=== PATIENT | male | born 1995 | race Asian ===

== ENCOUNTER 2025-04-29 15:22 | Outpatient (AMB) | payer OTHER, SELFPAY ==
--- NOTE | 2025-04-29 15:33 | MHC.OFFVIS ---
Intake Visit Reasons: Headaches Allergies No Known Allergies Allergy (Verified 04/23/25 12:54) HPI Comments Details: 29 yo man with epilepsy with generalized seizures (falling, LOC, convulsion, frothing, tongue bite) of unknown etiology since he was 15 years old usually controlled by oxcarbazepine and resulting in breakthrough seizures if not taken. (A product of normal . He was fine until he was 15 years old when he was vacationing in [facility] [place]. Apparently he was found fallen and having a generalized convulsion with tongue bite and frothing. He was taken to a local clinic but no medicine was given. About 3 years later while he was here in , he was getting ready to go to school when he fell backwards and had the same episode again. After this he was taken to [facility] in [place] and had some investigations. He was given diagnoses of epilepsy and was started on oxcarbazepine, which he has been taking since then. He said that spells were mostly controlled except that maybe he had one more episode when he missed some doses. He was not having any problem with medicine. He denied having any warning or aura before the spell. Typically he would found himself on the ground or afterwards. There was no family history of epilepsy.) [facility] Medical History (Updated 04/29/25 @ 15:52 by Ron Jordan MD) Generalized seizure disorder Epilepsy Review of Systems Const Details: Constitutional:?No fever, chills, fatigue, weight loss, or night sweats. HEENT:?No headache, vision changes, hearing loss, nasal congestion, sore throat. Neurological:?No dizziness, syncope, seizures, numbness, tingling, weakness, tremors, memory loss. Psychiatric:?No anxiety, depression, mood swings, sleep disturbance, or hallucinations. Endocrine:?No heat/cold intolerance, polydipsia, polyuria, or hair/skin changes. Hematologic/Lymphatic:?No easy bruising, bleeding, or lymphadenopathy. Integumentary (Skin):?No rash, lesions, itching, or color changes. ? Physical Exam Neuro Other: Mental Status: Alert and oriented to person, place, and time. Normal attention. Normal spontaneous speech, fluency, and comprehension. No obvious issues with mood and memory. Affect is appropriate. Cranial Nerves: CN II: Visual mccarthy full to confrontation, visual acuity intact. CN III, IV, : Pupils equal, round, reactive to light and accommodation. Extraocular movements are normal. CN V: Facial sensation is normal. CN VII: Facial movements symmetrical. CN VIII: Hearing intact to bedside conversation is normal. CN IX, X: Palate elevates symmetrically. CN XI: Shoulder shrug and head turn symmetrical. CN XII: Tongue midline without atrophy or fasciculations. Extrapyramidal: Full facial expressions and blinking. No rigidity. Movements are appropriate with no tremor or abnormality. Speech: Normal; no dysarthria or tremor. Assessment & Plan Assessment & Plan (1) Epilepsy: Comment: EEG at off in 2021: WNL Code(s): G40.909 - Epilepsy, unspecified, not intractable, without status epilepticus Category: Medical Qualifiers: Epilepsy type: generalized idiopathic Intractability: not intractable Status epilepticus: without status epilepticus Qualified Code(s): G40.309 - Generalized idiopathic epilepsy and epileptic syndromes, not intractable, without status epilepticus Plan Impression: a: Epilepsy with generalized seizures b: Personality change with anxiety and paranoia c: Neck and headache, probably benign type or migraine Rec: a: Oxcarbazepine 150mg, 3, twice a day b: Referral to [facility] c: Review of the scan done at [facility]. 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
--- OUTSIDE RECORDS SUMMARY | 2025-04-29 15:35 | XMS_ITS | Encounter Summary ---
Author Organization [facility] Address [address] [place] [phone] Phone Care Team Providers Care Financial Reporting Specialist Name Role Phone Micheal Muhammad MD Primary Care Provider Unavailabl e Encounter Details Date Type Department Care Team (Late st Contact Info) Description 04/27/2017 Conversion Encounter [facility] - [address], [address] [place] [address] Micheal Muhammad MD Social History Tobacco Use Types Packs/Day Years Used Date Smoking Tobacco: Never Assessed Sex and Gender Information Value Date Recorded Sex Assigned at Not on file Legal Sex Male 10:48 PM EST Gender Identity Not on file Sexual Orientation Not on file documented as of this encounter Plan of Treatment Not on file documented as of this encounter Visit Diagnoses Not on filedocumented in this encounter Care Teams Financial Reporting Specialist Relationship Specialty Start Date End Date Micheal Muhammad MD PCP - General 11/09/16 02/19/20 documented as of this encounter
== END 2025-04-29 15:59 | disposition home or self-care (01) ==
LOC: HO.HSM 15:22
PROVIDERS: PCP Internal Medicine; Visit Provider Psychiatry & Neurology Neurology
DX: G40.309 Generalized idiopathic epilepsy and epileptic syndromes, not intractable, without status epilepticus (principal)
CPT/HCPCS: 99214

== ENCOUNTER 2025-04-29 15:22 | Outpatient (REF) | payer OTHER, SELFPAY ==
[2025-04-29 18:01] LABS: Alanine Aminotransferase 17 U/L (0-40); Albumin Level 4.6 g/dL (3.5-5.0); Alkaline Phosphatase 77 U/L (39-117); Anion Gap 11 (12-20); Aspartate Amino Transferase 19 U/L (5-37); Blood Urea Nitrogen 13 mg/dL (9-16); Calcium 9.5 mg/dL (8.4-10.2); Carbon Dioxide 29 mmol/L (22-29); Chloride 107 mmol/L (96-108); Estimated Glomerular Filt Rate > 60; Potassium 4.2 mmol/L (3.3-5.1); Sodium 143 mmol/L (135-145); Total Protein 7.2 g/dL (6.5-8.0)
== END 2025-04-29 15:23 | disposition home or self-care (01) ==
LOC: HO.LAB 15:22
PROVIDERS: PCP Internal Medicine; Visit Provider Psychiatry & Neurology Neurology
DX: G40.309 Generalized idiopathic epilepsy and epileptic syndromes, not intractable, without status epilepticus (principal); F68.8 Other specified disorders of adult personality and behavior; F41.9 Anxiety disorder, unspecified; F22 Delusional disorders; R51.9 Headache, unspecified
CPT/HCPCS: 36415; 80048; 80076; 99212